=== PATIENT | male | born 1935 | race Caucasian/White ===

== ENCOUNTER → 2023-08-02 08:03 | Outpatient (CLI) | payer MEDICARE, OTHER, SELFPAY ==
[2023-08-02 08:35] LABS: Hemoglobin 12.5 g/dL (13.5-17.5)
[2023-08-02 08:38] LABS: Creatinine Urine Random 86.4 mg/dL; Protein (Total) Urine Random 12 mg/dL (0-12); Protein Creatinine Ratio Urine 0.13 GRAM/24H
[2023-08-02 08:55] LABS: BUN Creatinine Ratio 26.4 (6-22); Blood Urea Nitrogen 48 mg/dL (9-20); Calcium 9.8 mg/dL (8.4-10.2); Carbon Dioxide 27 mmol/L (22-32); Chloride 103 mmol/L (98-107); Estimated Glomerular Filt Rate 35 mL/min (>60); Glucose 134 mg/dL (80-110); HEMOLYSIS < 15 (0-50); Phosphorous 3.5 mg/dL (2.3-3.7); Sodium 137 mmol/L (137-145)
[2023-08-04 07:38] LABS: Parathyroid Hormone Int 76 pg/mL (15-65)
== END ==
LOC: LAB 08:04
PROVIDERS: PCP Family Medicine; Referring Provider Student in an Organized Health Care Education/Training Program; Visit Provider Student in an Organized Health Care Education/Training Program
DX: N05.9 Unspecified nephritic syndrome with unspecified morphologic changes (principal); D70.9 Neutropenia, unspecified; D63.1 Anemia in chronic kidney disease; E83.30 Disorder of phosphorus metabolism, unspecified; N25.81 Secondary hyperparathyroidism of renal origin; R80.9 Proteinuria, unspecified
CPT/HCPCS: 36415; 80048; 82570; 83970; 84100; 84156; 85014; 85018

== ENCOUNTER → 2023-09-05 07:45 | Outpatient (CLI) | payer MEDICARE, OTHER, SELFPAY ==
[2023-09-05 08:15] LABS: Cholesterol 110 mg/dL (140-199); HDL Cholesterol 39 mg/dL (40-60); LDL Cholesterol Calculated 55 mg/dL (<100); Triglycerides 80 mg/dL (35-150)
== END ==
PROVIDERS: PCP Family Medicine; Referring Provider Internal Medicine Cardiovascular Disease; Visit Provider Internal Medicine Cardiovascular Disease
DX: E78.5 Hyperlipidemia, unspecified (principal)
CPT/HCPCS: 36415; 80061

== ENCOUNTER → 2023-11-29 07:42 | Outpatient (CLI) | payer MEDICARE, OTHER, SELFPAY ==
[2023-11-29 08:09] LABS: Hematocrit 32.6 % (41-53); Hemoglobin 11.2 g/dL (13.5-17.5)
[2023-11-29 08:41] LABS: BUN Creatinine Ratio 25.5 (6-22); Blood Urea Nitrogen 47 mg/dL (9-20); Calcium 9.6 mg/dL (8.4-10.2); Carbon Dioxide 25 mmol/L (22-32); Chloride 109 mmol/L (98-107); Estimated Glomerular Filt Rate 35 mL/min (>60); Glucose 126 mg/dL (80-110); HEMOLYSIS < 15 (0-50); Potassium 4.5 mmol/L (3.4-5.1); Sodium 140 mmol/L (137-145)
[2023-11-29 16:19] LABS: Creatinine Urine Random 95.5 mg/dL; Protein (Total) Urine Random 8 mg/dL (0-12); Protein Creatinine Ratio Urine 0.08 GRAM/24H
== END ==
PROVIDERS: PCP Family Medicine; Referring Provider Student in an Organized Health Care Education/Training Program; Visit Provider Student in an Organized Health Care Education/Training Program
DX: N05.9 Unspecified nephritic syndrome with unspecified morphologic changes (principal); D70.9 Neutropenia, unspecified; D63.1 Anemia in chronic kidney disease; N25.81 Secondary hyperparathyroidism of renal origin; R80.9 Proteinuria, unspecified
CPT/HCPCS: 36415; 80048; 82570; 83970; 84156; 85014; 85018